=== PATIENT | female | born 1955 | race Caucasian/White ===

== ENCOUNTER 2016-04-11 14:49 | Emergency (ER) | payer BC, OTHER ==
[~2016-04-11] VITALS: Ht 165.1 cm; Wt 133.1 kg
[2016-04-11 15:03] VITALS: TEMP 36.8; Ht 165.1 cm; Wt 133.1 kg
--- NOTE | 2016-04-11 16:25 | EMERGENCY ROOM VISIT NOTE ---
History Report prepared by Robyn: Renny Love Under the Supervision of: Dr. Cherie Cao M.D. First contact with patient: 16:06 Chief Complaint: PAIN (GENERALIZED) Stated Complaint: NECK, SHOULDER, ARM PAIN ON LEFT SIDE History of Present Illness The patient is a 60 year old female who presents to the Emergency Room with complaints of left-sided generalized pain that started around 10 days ago. She says that she was shoveling snow the morning when the pain came on. The patient notes that she does not shovel normally, as she pushes the snow. By the end of that day, she started getting stiff, and then she started getting pain down her neck and into her left shoulder blade. The pain radiates down her left arm. The patient says her left arm throbs and aches. She notes trouble sleeping due to the pain. If she lays on her right side while sleeping, her left arm throbs. If she lays on her left side, the pain is a bit less but she still has trouble sleeping. The patient says she has weakness in her left arm as well. She has been taking baby aspirin, which has not decreased her pain. She denies any left leg pain or weakness. The patient has had a prior knee injury. She tried calling her primary care physician today, but the office is closed. She is not diabetic. Source of History: patient Onset: 10 days ago Position: other (left-sided generalized pain) Quality: ache, other (throbbing) Timing: worsening Associated Symptoms: + weakness (left arm; denies left leg weakness) Note: Associated symptoms: Pain down her neck and into left shoulder blade; radiates down left arm. Denies left leg pain. Review of Systems See HPI for pertinent positives & negatives. A total of 10 systems reviewed and were otherwise negative. Past Medical & Surgical Medical Problems: (1) HTN (hypertension) (2) Kidney disease Surgical Problems: (1) Hx of tonsillectomy Family History Heart disease Hypertension Social History Smoking Status: Never Smoker Alcohol Use: none Marital Status: Housing Status: lives alone Occupation Status: employed Current/Historical Medications Scheduled PRN Diclofenac (Voltaren), 75 MG PO DAILY PRN for Pain Naproxen Sodium (Aleve), 2-3 CAP PO DAILY PRN for Pain Allergies Coded Allergies: No Known Allergies (Unverified , 04/11/16) Physical Exam Vital Signs Date Time Temp Pulse Resp B/P Pulse Ox O2 Delivery O2 Flow Rate FiO2 04/11/16 18:48 68 16 120/95 100 04/11/16 17:45 63 16 164/70 98 Room Air 04/11/16 16:44 64 04/11/16 15:03 36.8 67 16 185/102 94 Room Air Physical Exam Vital signs reviewed. General: Obese, generally well-appearing 60 year old female, in no significant distress. HEENT: No scleral icterus, PERRLA, neck supple. Atraumatic. Nontender to palpation over cervical spine. Cardiovascular: Regular rate and rhythm, no extra sounds. Pulmonary: Clear to auscultation bilaterally, normal work of breathing. Abdomen: Soft, nontender, nondistended, positive bowel sounds. Musculoskeletal: Mild tenderness to palpation over trapezius muscle. Some discomfort with arm rotator cuff exam with arms fully extended anteriorly. Full strength on rotator cuff exam. Neurologic: Patient awake alert and oriented x 3, full strength in all 4 extremities. Cranial nerves 2 through 12 grossly intact. Skin: Warm, dry, no rash Medical Decision & Procedures ER Provider Diagnostic Interpretation: X-ray results as stated below per interpretation by me. Cervical Spine X-Ray: Mild to moderate degenerative change, no subluxation or acute fracture appreciated. Chest X-Ray: No subluxation or acute fracture appreciated. Shoulder X-Ray: No acute fracture or dislocation. Laboratory Results 04/11/16 17:12 Red Blood Count 5.47, Mean Corpuscular Volume 76.6, Mean Corpuscular Hemoglobin 24.3, Mean Corpuscular Hemoglobin Concent 31.7, Mean Platelet Volume 9.1, Neutrophils (%) (Auto) 67.9, Lymphocytes (%) (Auto) 23.5, Monocytes (%) (Auto) 5.7, Eosinophils (%) (Auto) 2.2, Basophils (%) (Auto) 0.4, Neutrophils # (Auto) 6.31, Lymphocytes # (Auto) 2.19, Monocytes # (Auto) 0.53, Eosinophils # (Auto) 0.20, Basophils # (Auto) 0.04 04/11/16 17:12 Test 04/11/16 17:12 White Blood Count 9.30 K/uL (4.8-10.8) Red Blood Count 5.47 M/uL (4.2-5.4) Hemoglobin 13.3 g/dL (12.0-16.0) Hematocrit 41.9 % (37-47) Mean Corpuscular Volume 76.6 fL (80-100) Mean Corpuscular Hemoglobin 24.3 pg (25-34) Mean Corpuscular Hemoglobin Concent 31.7 g/dl (32-36) Platelet Count 320 K/uL (130-400) Mean Platelet Volume 9.1 fL (7.4-10.4) Neutrophils (%) (Auto) 67.9 % Lymphocytes (%) (Auto) 23.5 % Monocytes (%) (Auto) 5.7 % Eosinophils (%) (Auto) 2.2 % Basophils (%) (Auto) 0.4 % Neutrophils # (Auto) 6.31 K/uL (1.4-6.5) Lymphocytes # (Auto) 2.19 K/uL (1.2-3.4) Monocytes # (Auto) 0.53 K/uL (0.11-0.59) Eosinophils # (Auto) 0.20 K/uL (0-0.5) Basophils # (Auto) 0.04 K/uL (0-0.2) RDW Standard Deviation 42.3 fL (36.4-46.3) RDW Coefficient of Variation 15.1 % (11.5-14.5) Immature Granulocyte % (Auto) 0.3 % Immature Granulocyte # (Auto) 0.03 K/uL (0.00-0.02) Anion Gap 10.0 mmol/L (3-11) Est Creatinine Clear Calc Drug Dose 84.6 ml/min Estimated GFR () 71.9 Estimated GFR (Non- 62.1 BUN/Creatinine Ratio 16.8 (10-20) Calcium Level 9.3 mg/dl (8.5-10.1) Magnesium Level 2.2 mg/dl (1.8-2.4) Total Bilirubin 0.2 mg/dl (0.2-1) Direct Bilirubin < 0.1 mg/dl (0-0.2) Aspartate Amino Transf (AST/SGOT) 23 U/L (15-37) Alanine Aminotransferase (ALT/SGPT) 31 U/L (12-78) Alkaline Phosphatase 78 U/L (45-117) Total Creatine Kinase 235 U/L (26-192) Creatine Kinase MB 3.8 ng/ml (0.5-3.6) Creatine Kinase MB Ratio 1.6 (0-3.0) Troponin I < 0.015 ng/ml (0-0.045) Total Protein 7.7 gm/dl (6.4-8.2) Albumin 3.7 gm/dl (3.4-5.0) Laboratory results per my review. ECG Indication: other (generalized pain) Rate (beats per minute): 61 Rhythm: other (sinus arrhythmia ) Findings: no acute ischemic change, no ectopy ED Course 1615: Past medical records reviewed. The patient was evaluated in room B4B. A complete history and physical examination was performed. 1835: I reevaluated the patient and she is resting comfortably. The patient verbally expressed agreement and understanding of the treatment plan. The patient will be discharged. Medical Decision Differential diagnoses include: acute coronary syndrome, cervical radiculopathy , degenerative joint disease, muscular strain. This pt was evaluated and appeared to be in no distress. She has had several days of pain. EKG is negative for acute ischemia. Lab work reveals neg cardiac enzymes. XR reveal no acute changes to my interpretation. Pt was reassured and asked to f/u with her PCP this week. I have recommended further cardiac evaluation due to her risk factors. Pt will return to the ED for worsening or change in symptoms or any medical concerns. Impression Primary Impression: Cervical radiculopathy Scribe Attestation The scribe's documentation has been prepared under my direction and personally reviewed by me in its entirety. I confirm that the note above accurately reflects all work, treatment, procedures, and medical decision making performed by me. Departure Information Dispostion Home / Self-Care Referrals Odalys Pennington M.D. (PCP) Forms HOME CARE DOCUMENTATION FORM, IMPORTANT VISIT INFORMATION, WORK / SCHOOL INSTRUCTIONS Patient Instructions A Signature Page, My [facility] [employer] Additional Instructions Diagnosis: Cervical radiculopathy Ibuprofen 600 mg every 6 hours as needed for pain with food. Warm compresses and gentle stretching. Follow-up with your physician this week for reevaluation. Return to the ER for worsening of symptoms or any medical concerns.
[2016-04-11] MEDS ORDERED: NAPR1CAP12 PO (16:45)
[2016-04-11] MEDS ORDERED: DICL-201 PO (16:50)
[2016-04-11 17:26] LABS: BASO % 0.4 %; BASO ABS # 0.04 K/uL (0-0.2); COMPLETE YES; EOS % 2.2 %; HEMATOCRIT 41.9 % (37-47); IG% 0.3 %; LYMPH % 23.5 %; LYMPH ABS # 2.19 K/uL (1.2-3.4); MEAN CELL VOLUME 76.6 fL (80-100); MEAN CORPUSCULAR HEMOGLOBIN 24.3 pg (25-34); MEAN CORPUSCULAR HGB CONC 31.7 g/dl (32-36); MEAN PLATELET VOLUME 9.1 fL (7.4-10.4); MONO % 5.7 %; NEUT % 67.9 %; PLATELET COUNT 320 K/uL (130-400); RED BLOOD COUNT 5.47 M/uL (4.2-5.4)
[2016-04-11 17:47] LABS: ALT/SGPT 31 U/L (12-78); BLOOD UREA NITROGEN 17 mg/dl (7-18); BUN/CREATININE RATIO 16.8 (10-20); CALCIUM 9.3 mg/dl (8.5-10.1); CARBON DIOXIDE 28 mmol/L (21-32); CHLORIDE 104 mmol/L (98-107); GLUCOSE 80 mg/dl (70-99); MAGNESIUM 2.2 mg/dl (1.8-2.4); POTASSIUM 4.1 mmol/L (3.5-5.1); SODIUM 142 mmol/L (136-145)
[2016-04-11 17:52] LABS: ALKALINE PHOSPHATASE 78 U/L (45-117); AST/SGOT 23 U/L (15-37); CKMB/CK RATIO 1.6 (0-3.0)
--- NOTE | 2016-04-11 18:37 | DIAGNOSTIC IMAGING REPORT ---
CERVICAL SPINE 6 VIEWS CLINICAL HISTORY: Neck pain. No reported history of trauma. FINDINGS: AP, lateral, bilateral oblique, swimmer's, and odontoid views of the cervical spine are obtained. No prior studies are available for comparison at the time of dictation. The skeletal structures are osteopenic. There is no radiographic evidence of fracture or subluxation. The odontoid process and lateral masses appear intact on the open mouth view. Productive degenerative change is seen at the atlantodental joint. The spinolaminar line is preserved. Vertebral body height and alignment are maintained. There is straightening of the cervical lordosis. C7 is best seen on the swimmer's an oblique views. The spinous processes appear intact. There is mild to moderate degenerative disc space narrowing at C5-C6 and C6-C7. The remaining intervertebral disc spaces are preserved. Posterior disc osteophyte complexes at C4-C5, C5-C6, and C6-C7 may contribute to mild acquired compromise of the central canal. Mild bilateral neural frontal stenosis is suggested from C4-C5 through C6-C7 on the oblique views. The prevertebral soft tissues are within normal limits. Visualized apical lung parenchyma appears clear. IMPRESSION: 1. There is no acute bony abnormality is seen involving the cervical spine. 2. Osteopenia and mild cervical spondylosis as detailed above. Electronically signed by: Robby Reid M.D. 04/11/2016 6:35 PM
--- NOTE | 2016-04-11 18:38 | DIAGNOSTIC IMAGING REPORT ---
TWO VIEW CHEST CLINICAL HISTORY: Left shoulder and arm pain. FINDINGS: PA and lateral chest radiographs are obtained. No prior studies are available for comparison at the time of dictation. The examination is mildly degraded by large body habitus. The cardiomediastinal silhouette is unremarkable. The lungs and pleural spaces are clear. There is no pneumothorax. The skeletal structures are osteopenic. Degenerative changes noted in the thoracic spine. IMPRESSION: No active disease in the chest. Electronically signed by: Robby Reid M.D. 04/11/2016 6:36 PM
--- NOTE | 2016-04-11 18:39 | DIAGNOSTIC IMAGING REPORT ---
LEFT SHOULDER 3 VIEWS CLINICAL HISTORY: Left shoulder pain. FINDINGS: 3 views of the left shoulder are obtained. No prior studies are available for comparison at the time of dictation. The skeletal structures are osteopenic. No fracture or dislocation is seen. The glenohumeral articulation is preserved. Mild productive change is noted at the acromioclavicular joint. The overlying soft tissues are within normal limits. The imaged left lung parenchyma appears clear. IMPRESSION: No acute bony abnormality is seen in the left shoulder. Electronically signed by: Robby Reid M.D. 04/11/2016 6:37 PM
[2016-04-11 18:48] VITALS: BP 120/95; PULSE 68; O2SAT 100
== END 2016-04-11 18:50 | disposition home or self-care (01) ==
LOC: C.EDB 14:49
DX: M54.12 Radiculopathy, cervical region (principal); I10 Essential (primary) hypertension

== ENCOUNTER → 2016-09-28 | Outpatient (CLI) | payer BC ==
[~2016-09-28] VITALS: Ht 165.1 cm; Wt 107.7 kg
[~2016-09-28] MED LIST: DICL-201 PO; NAPR1CAP12 PO
[2016-09-28 16:31] VITALS: BP 116/78; PULSE 62; Ht 165.1 cm; Wt 107.7 kg
== END | disposition home or self-care (01) ==
LOC: C.NEUR 15:15
PROVIDERS: ATTEND Internal Medicine Pulmonary Disease
DX: G47.33 Obstructive sleep apnea (adult) (pediatric) (principal); E66.9 Obesity, unspecified

== ENCOUNTER → 2017-04-14 | Outpatient (CLI) | payer OTHER ==
--- NOTE | 2017-04-14 12:47 | MAMMOGRAPHY REPORT ---
BILATERAL DIGITAL SCREENING MAMMOGRAM TOMOSYNTHESIS WITH CAD: 04/14/2017 CLINICAL HISTORY: Routine screening. TECHNIQUE: Breast tomosynthesis in addition to standard 2D mammography was performed. Current study was also evaluated with a Computer Aided Detection (CAD) system. COMPARISON: Comparison is made to exams dated: 03/03/2016 mammogram, 02/28/2015 mammogram, 4 mammogram, 02/23/2013 mammogram, 02/21/2012 mammogram, and 02/16/2011 mammogram - [facility]. BREAST COMPOSITION: The tissue of both breasts is almost entirely fatty. FINDINGS: No suspicious masses, calcifications, or areas of architectural distortion are noted in ei ther breast. There has been no significant interval change compared to prior exams. Oval benign-appe aring mass in the left upper outer quadrant is stable. IMPRESSION: ACR BI-RADS CATEGORY 2: BENIGN There is no mammographic evidence of malignancy. A 1 year screening mammogram is recommended. The pa tient will receive written notification of the results. Approximately 10% of breast cancers are not detected with mammography. A negative mammographic report should not delay biopsy if a clinically suggestive mass is present. Roselyn Stout M.D. /:04/14/2017 07:44:02 Straight Line Press Setter: Debbi WHYTE(R)(M), [facility] letter sent: Normal 1/2 BI-RADS Code: ACR BI-RADS Category 2: Benign
== END | disposition home or self-care (01) ==
LOC: C.MAMM 07:21
PROVIDERS: ATTEND Family Medicine
DX: Z12.31 Encounter for screening mammogram for malignant neoplasm of breast (principal)